=== PATIENT | female | born 1985 | race Two or more races ===

== ENCOUNTER → 2020-04-13 | Outpatient (REF) | payer MEDICAID ==
[2020-04-13 14:25] LABS: HEMOGLOBIN 11.4 g/dl (12.0-15.5); MEAN CORPUSCULAR HEMOGLOBIN 27.3 pg (27.0-33.0); MEAN CORPUSCULAR HGB CONC 32.6 g/dl (32.0-36.5); MEAN CORPUSCULAR VOLUME 83.7 fl (80.0-96.0); PLATELET COUNT, AUTOMATED 268 10^3/uL (150-450); RED BLOOD COUNT 4.18 10^6/uL (4.00-5.40); WHITE BLOOD COUNT 7.3 10^3/uL (4.0-10.0)
[2020-04-13 14:55] LABS: HEMOGLOBIN A1c 5.3 %
[2020-04-13 15:18] LABS: HEPATITIS C VIRUS ABY INDEX 0.1 INDEX (<0.8); HIV 1&2 SCREEN CENTAUR NEGATIVE (NEGATIVE)
== END ==
LOC: M PLALAB 10:36
PROVIDERS: ATTEND Advanced Practice Midwife
DX: Z3A.09 9 weeks gestation of pregnancy (principal)

== ENCOUNTER → 2020-06-23 | Outpatient (CLI) | payer MEDICAID ==
--- NOTE | 2020-06-23 16:59 | REP ---
INDICATION: ANATOMY. COMPARISON: None. TECHNIQUE: Real-time sonographic evaluation of the gravid uterus performed. FINDINGS: Estimated gestational age is19 weeks 6 days, EDC 11/11/2020. Today's measurements indicate appropriate growth. Presentation: Breech Placenta anterior, grade 1, without evidence of placenta previa. heart rate is recorded at 134 beats per minute. Amniotic fluid is subjectively normal. Closed cervical length is measured at 3.9 cm. Biometry chart: BPD: 45 mm, 19 weeks 5 days, 46th percentile. HC: 176 mm, 20 weeks 0 days, 56th percentile AC: 137 mm, 19 weeks 1 days, 35th percentile Femur length: 34 mm, 20 weeks 6 days, 73rd percentile HC to AC ratio: 1.28, normal range 1.06-1.25. Estimated weight: 319g, 47th percentile. anatomy: Cranium: Grossly normal Lateral Ventricles/Choroid Plexus: Grossly normal Posterior Fossa/Cerebellum: Grossly normal Nose/lips/profile: Grossly normal Four chamber heart: Grossly normal Right ventricular outflow tract: Grossly normal Left ventricular outflow tract: Grossly normal Left-sided stomach: Grossly normal Kidneys: Grossly normal Bladder: Grossly normal Cord Insertion: Grossly normal 3 vessel cord: Grossly normal Spine: Not well seen due to position. IMPRESSION: Viable single intrauterine gestation as above. Spine not well seen due to position. <Electronically signed by Washington Alexander > 06/23/20 [id number]
== END ==
LOC: M WHC 13:27
PROVIDERS: ATTEND Advanced Practice Midwife
DX: O32.1XX0 Maternal care for breech presentation, not applicable or unspecified (principal); Z3A.19 19 weeks gestation of pregnancy

== ENCOUNTER → 2020-07-01 | Outpatient (CLI) | payer MEDICAID, OTHER | LOC: M WHC 00:28 | PROVIDERS: ATTEND Obstetrics & Gynecology | DX: Z36.89 Encounter for other specified antenatal screening (principal); Z3A.21 21 weeks gestation of pregnancy; Z53.8 Procedure and treatment not carried out for other reasons ==

== ENCOUNTER → 2020-07-10 | Outpatient (CLI) | payer MEDICAID ==
--- NOTE | 2020-07-10 11:58 | REP ---
INDICATION: F/U ANATOMY COMPARISON: 06/23/2020 TECHNIQUE: Transabdominal obstetrical ultrasound with color Doppler evaluation. FINDINGS: Examination demonstrates a single live intrauterine in breech presentation. motion is identified by technologist. Placenta is noted anterior and grade 1 without evidence for placenta previa or abruption. Amniotic fluid volume is normal. Cervix measures 3.0 cm in length and appears closed.. Gestational age by 1st ultrasound 22 weeks 2 days with EL 11/11/2020. Gestational age by current measurements 22 weeks 4 days with EL 11/09/2020. FHR equals 142 beats per minute. Estimated weight 546 grams (75thpercentile). Anatomical assessment demonstrates normal spine. IMPRESSION: Single live intrauterine in breech presentation demonstrating appropriate estimated weight and growth. Images of the spine are normal. <Electronically signed by Paul Lopez > 07/10/20 [id number]
== END ==
LOC: M WHC 11:10
PROVIDERS: ATTEND Obstetrics & Gynecology
DX: Z34.92 Encounter for supervision of normal pregnancy, unspecified, second trimester (principal); Z3A.22 22 weeks gestation of pregnancy

== ENCOUNTER → 2020-08-20 | Outpatient (REF) | payer MEDICAID, OTHER ==
[2020-08-20 10:46] LABS: HEMATOCRIT 35.1 % (36.0-47.0); HEMOGLOBIN 11.5 g/dl (12.0-15.5); MEAN CORPUSCULAR HEMOGLOBIN 28.3 pg (27.0-33.0); MEAN CORPUSCULAR HGB CONC 32.8 g/dl (32.0-36.5); MEAN CORPUSCULAR VOLUME 86.5 fl (80.0-96.0); PLATELET COUNT, AUTOMATED 249 10^3/uL (150-450); RED BLOOD COUNT 4.06 10^6/uL (4.00-5.40); WHITE BLOOD COUNT 9.2 10^3/uL (4.0-10.0)
[2020-08-20 11:15] LABS: ALT/SGPT 20 U/L (12-78); BILIRUBIN,TOTAL 0.2 MG/DL (0.2-1.0); CREATININE FOR GFR 0.58 MG/DL (0.55-1.30); GLOMERULAR FILTRATION RATE > 60.0 (>60); GLUCOSE CHALLENGE TEST 1 HOUR 128 MG/DL (LESS THAN 140); LDH LACTATE DEHYDROGENASE 154 U/L (84-246); URIC ACID 3.6 MG/DL (2.6-6.0)
[2020-08-20 11:16] LABS: CREATININE,RANDOM URINE 34.2 MG/DL; TOTAL PROTEIN,RANDOM URINE 9.8 MG/DL (0.0-12.0)
== END ==
LOC: M PLALAB 08:54
PROVIDERS: ATTEND Advanced Practice Midwife
DX: Z3A.26 26 weeks gestation of pregnancy (principal)

== ENCOUNTER → 2020-09-17 | Outpatient (CLI) | payer OTHER, MEDICAID ==
--- NOTE | 2020-09-17 16:42 | REP ---
INDICATION: GROWTH HYPERTENSTION. COMPARISON: Comparison sonography 27 August 2020.. TECHNIQUE: Transabdominal obstetric sonography. FINDINGS: Scanning through the gravid uterus demonstrates a viable single intrauterine gestation in cephalic lie. motion is observed and heart rate is recorded at 142 beats per minute. A anterior placenta is seen, grade 2, without evidence of placenta previa. Closed cervical length is measured at 3.2 cm transabdominally. No extrauterine abnormality is observed. Amniotic fluid is subjectively normal. MICHAEL is normal at 11.2 cm.. anatomic survey is not performed with this exam.. Biometry chart: BPD 8.1 cm, 32 weeks 4 days Head circumference 29.1 cm, 32 weeks 1 day Abdominal circumference 27.9 cm, 32 weeks 0 days Femur length 6.5 cm, 33 weeks 3 days Humeral length 5.8 cm, 33 weeks 2 days HC AC ratio normal 1.04 Cephalic index normal 0.79 Estimated weight 1982 g, 4 lb 5 oz, 50th percentile for 32 weeks 1 day SD ratio in the umbilical cord artery by Doppler is normal at 2.22 IMPRESSION: Viable single intrauterine gestation at 32 weeks 5 days by today's composite sonographic criteria. EL by today's sonography November 07, 2020. No complication identified. Expected gestational age estimate based on prior sonography is 32 weeks 1 day. EL by prior sonography November 11, 2020. There is appropriate interval growth. <Electronically signed by Ryne Ferrari > 09/17/20 [id number]
== END ==
LOC: M WHC 10:03
PROVIDERS: ATTEND Advanced Practice Midwife
DX: O10.919 Unspecified pre-existing hypertension complicating pregnancy, unspecified trimester (principal)

== ENCOUNTER → 2020-09-17 | Outpatient (REF) | payer OTHER ==
[2020-09-17 15:35] LABS: HEMATOCRIT 35.1 % (36.0-47.0); HEMOGLOBIN 11.3 g/dl (12.0-15.5); MEAN CORPUSCULAR HEMOGLOBIN 28.3 pg (27.0-33.0); MEAN CORPUSCULAR HGB CONC 32.2 g/dl (32.0-36.5); PLATELET COUNT, AUTOMATED 238 10^3/uL (150-450); RED BLOOD COUNT 3.99 10^6/uL (4.00-5.40); WHITE BLOOD COUNT 9.8 10^3/uL (4.0-10.0)
[2020-09-17 15:51] LABS: ALT/SGPT 55 U/L (12-78); BILIRUBIN,TOTAL 0.2 MG/DL (0.2-1.0); CREATININE FOR GFR 0.59 MG/DL (0.55-1.30); GLOMERULAR FILTRATION RATE > 60.0 (>60); LDH LACTATE DEHYDROGENASE 158 U/L (84-246); URIC ACID 3.8 MG/DL (2.6-6.0)
== END ==
LOC: M PLALAB 12:32
PROVIDERS: ATTEND Advanced Practice Midwife
DX: O10.919 Unspecified pre-existing hypertension complicating pregnancy, unspecified trimester (principal)

== ENCOUNTER → 2020-09-18 | Outpatient (REF) | payer OTHER ==
[2020-09-18 15:32] LABS: APPEARANCE, URINE CLEAR (CLEAR); BACTERIA, URINE AUTO NEGATIVE (NEGATIVE); BILIRUBIN, URINE AUTO NEGATIVE (NEGATIVE); BLOOD, URINE BLOOD NEGATIVE (NEGATIVE); COLOR, URINE STRAW (YELLOW); GLUCOSE, URINE (UA) AUTO NEGATIVE (NEGATIVE); KETONE, URINE AUTO NEGATIVE (NEGATIVE); LEUKOCYTE ESTERASE, URINE AUTO NEGATIVE (NEGATIVE); NITRITE, URINE AUTO NEGATIVE (NEGATIVE); PROTEIN, URINE AUTO NEGATIVE (NEGATIVE); RBC, URINE AUTO 0 /HPF (0-3); SPECIFIC GRAVITY URINE AUTO 1.005 (1.002-1.035); SQUAMOUS EPITHELIAL CELL UR AU 1 /HPF (0-6); UROBILINOGEN, URINE AUTO 0.2 mg/dL (0.0-2.0); WBC, URINE AUTO 0 /HPF (0-3)
[2020-09-18 15:51] LABS: CREATININE,RANDOM URINE 53.6 MG/DL; TOTAL PROTEIN,RANDOM URINE < 5.0 MG/DL (0.0-12.0)
== END ==
LOC: M PLALAB 13:50
PROVIDERS: ATTEND Advanced Practice Midwife
DX: R39.15 Urgency of urination (principal); O10.919 Unspecified pre-existing hypertension complicating pregnancy, unspecified trimester

== ENCOUNTER → 2020-10-09 | Outpatient (CLI) | payer OTHER ==
[~2020-10-09] MED LIST: ACET-907 PO; ALKATAB22 PO; BUSP5TA PO; CALC500C16 PO; CBD OIL; CLAR5TAB11 PO; ECOT81TA5 PO; LABE200T32 PO; LABE300T2 PO; NOXI1TAB PO; PRENTAB9 PO; VITA100T59 PO; [UNRECOGNIZED DRUG - CODE] PO
--- NOTE | 2020-10-09 09:05 | REP ---
INDICATION: HYPERTENSION,GROWTH COMPARISON: 09/17/2020 TECHNIQUE: Transabdominal obstetrical ultrasound with color Doppler evaluation. FINDINGS: Examination demonstrates a single live intrauterine in cephalic presentation. motion is identified by technologist. Placenta is noted anterior and grade 2 without evidence for placenta previa or abruption. Amniotic fluid volume is decreased. Selected gestational age: 35 weeks 2 days with EL 11/11/2020. Gestational age by current measurements 35 weeks 2 days with EL 11/11/2020. FHR equals 134 beats per minute. Estimated weight 2635 grams (47thpercentile). MICHAEL: 3.5 cm Umbilical artery SD ratio: 2.18 (1.67-3.57) IMPRESSION: 1. Single live intrauterine in cephalic presentation demonstrating appropriate interval growth. 2. Oligohydramnios. <Electronically signed by Paul Lopez > 10/09/20 0901
== END ==
LOC: M WHC 07:05
PROVIDERS: ATTEND Advanced Practice Midwife
DX: O16.2 Unspecified maternal hypertension, second trimester (principal)

== ENCOUNTER 2020-10-10 18:37 | Outpatient (CLI) | payer OTHER ==
[~2020-10-10] VITALS: Ht 174 cm; Wt 109.0 kg
[~2020-10-10 18:37] MED LIST changes: -BUSP5TA PO; -LABE200T32 PO; -[UNRECOGNIZED DRUG - CODE] PO
[2020-10-10] MEDS ORDERED: BETAMETHASONE SOLUSPAN 6MG/ML 5ML VIAL (J0702 PER 3MG) IM ONE (19:00)
== END 2020-10-10 18:46 | disposition home or self-care (01) ==
LOC: M LDO 18:37
PROVIDERS: ATTEND Obstetrics & Gynecology
DX: O41.03X0 Oligohydramnios, third trimester, not applicable or unspecified (principal); Z3A.35 35 weeks gestation of pregnancy; O10.013 Pre-existing essential hypertension complicating pregnancy, third trimester; O09.513 Supervision of elderly primigravida, third trimester; Z88.1 Allergy status to other antibiotic agents; Z88.2 Allergy status to sulfonamides; Z88.8 Allergy status to other drugs, medicaments and biological substances; Z91.018 Allergy to other foods
CPT/HCPCS: 96372; J0702

== ENCOUNTER 2020-10-12 10:09 | Outpatient (CLI) | payer OTHER ==
[2020-10-12] VITALS (10 sets, daily range): BP systolic 117–167; BP diastolic 75–94
[~2020-10-12] VITALS: Ht 174 cm; Wt 110.0 kg
[2020-10-12] MEDS ORDERED: [UNRECOGNIZED DRUG - CODE] PO (10:27)
[2020-10-12] MEDS ORDERED: LABETALOL 100MG TAB PO ONE (11:15)
[2020-10-12] MEDS ORDERED: busPIRone 5 MG TAB PO ONE (14:00)
--- NOTE | 2020-10-12 14:02 | REP ---
INDICATION: chronic hypertension with oligohydramnios. COMPARISON: None. TECHNIQUE: Transabdominal scanning FINDINGS: Multiple ultrasonographic images of the gravid uterus shows a single living intrauterine gestation in the cephalic presentation. The placenta is anterior and not low-lying. Secondary to the low position of the head an accurate cervical length measurement could not be obtained. Doppler interrogation of the heart shows a heart rate of 139 beats per minute. The subjective amniotic fluid volume is low. The calculated amniotic fluid index is 7.4 within expected range 7.8 to 24.9. biophysical profile score is 2 for breathing, 2 for movement, 2 for tone, and 2 for amniotic fluid volume giving a sum total of 8/8. Doppler interrogation of the umbilical artery shows an AB ratio of 2.48. This is within the normal range. IMPRESSION: Limited OB ultrasound as described above. There is evidence of oligohydramnios. <Electronically signed by Enrique Chaves > 10/12/20 [id number]
[2020-10-12] MEDS ORDERED: LABE200T32 PO (14:39)
[2020-10-12] MEDS ORDERED: BUSP5TA PO (14:40)
--- NOTE | 2020-10-12 14:44 | IPNPDOC ---
Text Note Date of Service The patient was seen on 10/12/20. NOTE Subjective: Objective: Assessment: Plan: VS,Fishbone, I+O VS, Fishbone, I+O Vital Signs Date Time Temp Pulse Resp B/P (MAP) Pulse Ox O2 Delivery O2 Flow Rate FiO2 10/12/20 14:14 52 16 154/84 (107) 10/12/20 10:33 98.0 [facility] NAME: TOMMIE SALGADO DATE OF : 1985 AGE: 35 SEX: F REPORT #: [id number] ROOM: [facility] TECHNOLOGIST: ROSCOE DOCTOR: TREVOR KNOX CNM Ordered for Date&Time: 10/12/20 1237 cc: [~ rep ct ivnm] Service Date&Time: 10/12/20 1346 This report is in Signed status. If this report is in a DRAFT status it has not yet been reviewed by the radiologist for accuracy. Thank you for having your radiology procedures performed at [facility] RADIOLOGY REPORT Date&Time printed: [~ rep prt dt last] [~ rep prt tm last] Page 2 of 2 [place] [address] RADIOLOGY REPORT This report is in Signed status. If this report is in a DRAFT status it has not yet been reviewed by the radiologist for accuracy. Thank you for having your radiology procedures performed at [facility] RADIOLOGY REPORT Date&Time printed: [~ rep prt dt last] [~ rep prt tm last] Page 1 of 1 NAME: TOMMIE SALGADO DATE OF : 1985 AGE: 35 SEX: F REPORT #: [id number] ROOM: [facility] TECHNOLOGIST: OWEN DOCTOR: TREVOR KNOX CNM Ordered for Date&Time: 10/12/20 1237 cc: [~ rep ct ivnm] Service Date&Time: 10/12/20 1346 EXAMINATION REQUESTED: BPP W/O NON STRESS TEST REASON FOR PATIENT VISIT: BLOOD PRESSURE REASON FOR EXAM/COMMENT: chronic hypertension with oligohydramnios INDICATION: chronic hypertension with oligohydramnios. COMPARISON: None. TECHNIQUE: Transabdominal scanning FINDINGS: Multiple ultrasonographic images of the gravid uterus shows a single living intrauterine gestation in the cephalic presentation. The placenta is anterior and not low-lying. Secondary to the low position of the head an accurate cervical length measurement could not be obtained. Doppler interrogation of the heart shows a heart rate of 139 beats per minute. The subjective amniotic fluid volume is low. The calculated amniotic fluid index is 7.4 within expected range 7.8 to 24.9. biophysical profile score is 2 for breathing, 2 for movement, 2 for tone, and 2 for amniotic fluid volume giving a sum total of 8/8. Doppler interrogation of the umbilical artery shows an AB ratio of 2.48. This is within the normal range. IMPRESSION: Limited OB ultrasound as described above. There is evidence of oligohydramnios. <Electronically signed by Enrique Chaves > 10/12/20 1359 DD: Enrique Chaves MD DO 10/12/20 1356 DT: JENNIFER 10/12/20 1359 DS: LYDIA 10/12/20 1356 10/12/20 1356 [~ rep ct labl] TREVOR KNOX CNM Oct 12, 2020 14:43
== END 2020-10-12 15:00 ==
LOC: M LDO 10:09
PROVIDERS: ATTEND Advanced Practice Midwife
DX: O10.013 Pre-existing essential hypertension complicating pregnancy, third trimester (principal); Z3A.35 35 weeks gestation of pregnancy; O41.03X0 Oligohydramnios, third trimester, not applicable or unspecified; O09.513 Supervision of elderly primigravida, third trimester; Z88.1 Allergy status to other antibiotic agents; Z88.2 Allergy status to sulfonamides; Z88.8 Allergy status to other drugs, medicaments and biological substances

== ENCOUNTER → 2020-10-13 | Outpatient (REF) | payer OTHER ==
[~2020-10-13] MED LIST changes: +BUSP5TA PO; +LABE200T32 PO; +[UNRECOGNIZED DRUG - CODE] PO
== END ==
LOC: M PLALAB 10:43
PROVIDERS: ATTEND Obstetrics & Gynecology
DX: Z36.89 Encounter for other specified antenatal screening (principal); Z3A.35 35 weeks gestation of pregnancy

== ENCOUNTER → 2020-10-13 | Outpatient (REF) | payer OTHER | LOC: M SFHCWAGY 16:55 | PROVIDERS: ATTEND Obstetrics & Gynecology | DX: Z36.89 Encounter for other specified antenatal screening (principal); Z3A.35 35 weeks gestation of pregnancy ==

== ENCOUNTER 2020-10-21 18:14 | Inpatient (IN) | payer OTHER ==
[~2020-10-21] VITALS: Ht 174 cm; Wt 111.3 kg
[2020-10-21 18:37] VITALS: BP 142/82
[2020-10-21 19:43] VITALS: BP 128/82
[2020-10-21] MEDS ORDERED: LACTATED RINGER'S 1000 ML IV STA (19:48)
[2020-10-21] MEDS ORDERED: OXYTOCIN INJ 10 UNITS/ML VIAL (J2590) IM PRN (19:50)
[2020-10-21] MEDS ORDERED: LIDOCAINE 1% MDV 20ML VIAL INFIL PRN (19:50)
[2020-10-21] MEDS ORDERED: OXYTOCIN DRIP 30 UNITS in IV 1 EA IV PRN (19:50)
[2020-10-21] MEDS ORDERED: METHYLERGONOVINE MALEATE 0.2 MG/ML VIAL (J2210) IM PRN (19:50)
[2020-10-21] MEDS: miSOPROStol 50MCG 1/2 TABLET PO SCH (20:06)
[2020-10-21] MEDS: LR 1,000 ML IV SCH (20:06)
[2020-10-21 20:12] LABS: HEMATOCRIT 32.9 % (36.0-47.0); HEMOGLOBIN 10.7 g/dl (12.0-15.5); MEAN CORPUSCULAR HEMOGLOBIN 28.1 pg (27.0-33.0); MEAN CORPUSCULAR HGB CONC 32.5 g/dl (32.0-36.5); MEAN CORPUSCULAR VOLUME 86.4 fl (80.0-96.0); PLATELET COUNT, AUTOMATED 220 10^3/uL (150-450); RED BLOOD COUNT 3.81 10^6/uL (4.00-5.40); WHITE BLOOD COUNT 10.2 10^3/uL (4.0-10.0)
[2020-10-21] MEDS ORDERED: OMEP40CA4 PO (20:26)
[2020-10-21 20:32] LABS: ALT/SGPT 37 U/L (12-78); BILIRUBIN,TOTAL 0.2 MG/DL (0.2-1.0); CREATININE FOR GFR 0.63 MG/DL (0.55-1.30); GLOMERULAR FILTRATION RATE > 60.0 (>60); LDH LACTATE DEHYDROGENASE 190 U/L (84-246); URIC ACID 4.2 MG/DL (2.6-6.0)
[2020-10-21 20:53] VITALS: BP 141/82
[2020-10-21 21:23] VITALS: BP 138/85
[2020-10-21 22:24] VITALS: BP 140/84
[2020-10-21] MEDS: LABETALOL 200 MG TAB PO SCH (22:43)
[2020-10-21 23:46] VITALS: BP 129/69
[2020-10-22] VITALS (17 sets, daily range): BP systolic 105–179; BP diastolic 55–92
[2020-10-22] MEDS: miSOPROStol 50MCG 1/2 TABLET PO SCH ×6 (00:07→22:33)
--- NOTE | 2020-10-22 00:36 | HPE ---
HISTORY AND PHYSICAL DATE OF ADMISSION: 10/21/2020 HISTORY OF PRESENT ILLNESS: Yahir is a 35-year-old 1, para 0, at 37 weeks gestation, EDC of 11/11/2020 based on last menstrual period and confirmed by first trimester ultrasound. She presents to labor and delivery today for induction of labor following a routine office visit where she was noted to have no measurable pockets of fluid for an MICHAEL. She does deny regular painful contractions, vaginal bleeding and leakage of fluids. She does report the fetus has been active. Her care was initiated at [facility] in the first trimester. Her course was complicated by chronic hypertension and oligohydramnios that she has been followed for. Her mother has a history of breast cancer at age 27. OBSTETRIC LABS: O+, antibody screen negative, Syphilis negative, gonorrhea and Chlamydia negative. Hepatitis B negative. Hepatitis C negative. HIV negative. Rubella immune. Gestational diabetic screening 128 and her GBS is negative. PAST MEDICAL HISTORY: Childhood Varicella. PAST SURGICAL HISTORY: Colposcopy and wisdom tooth extraction. ALLERGIES: Bactrim, Azithromycin, sulfa, and strawberries. CURRENT MEDICATIONS: Labetalol 400 mg b.i.d., vitamin. FAMILY HISTORY: Breast cancer, hypertension. SOCIAL HISTORY: The patient is single, however, the father of the baby is at bedside and he is supportive. She is a nonsmoker. Denies alcohol and drug use. 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 She denies a history of abuse; physical, sexual and emotional. OBJECTIVE: Temperature 98.3, pulse 68, respiratory rate 18, blood pressure 128/82. heart rate is 130 with moderate variability. Positive accelerations. No decelerations. There is an occasional contraction. Her abdomen is gravid. Cephalic presentation. Estimated weight 2800 grams. IMAGING: Most recent ultrasound on 10/12/2020 showed a fluid of 7.4 cm and in the office today no measurable fluid noted. STERILE VAGINAL EXAMINATION: Fingertip dilated, 50% effaced, -3 station posterior, soft. No show with the exam. ASSESSMENT: Intrauterine at 37 weeks gestation. heart rate is category 1. Oligohydramnios anhydramnios. PLAN: Per consult with Dr. Kimmie Mcdonald, admit patient to labor and delivery. Routine laboratories with the addition of a preeclamptic profile. Out of bed ad david, clear liquid diet. Plan to start Misoprostol 50 mcg p.o. for cervical ripening. I did review the risks, benefits and alternatives with the patient. She has been verbally consented for emergency surgery and blood products. She and her fianc's questions have been answered. I do anticipate cervical ripening. The patient is desiring an epidural when she is in active labor. I did review with the patient and her that she is at risk for section due to absent aamniotic fluid and hypertension. JOHN
[2020-10-22] MEDS: LR 1,000 ML IV SCH ×3 (04:18→17:11)
[2020-10-22] MEDS: LABETALOL 200 MG TAB PO SCH ×2 (08:33→21:45)
--- NOTE | 2020-10-22 09:42 | REP ---
INDICATION: dx oligo, want MICHAEL with BPP. COMPARISON: None. TECHNIQUE: Transabdominal scanning FINDINGS: Ultrasonographic evaluation of the gravid uterus shows a single living intrauterine gestation in the cephalic presentation. Doppler interrogation of the heart is a heart rate of 128 beats per minute. The subjective amniotic fluid volume is decreased. The calculated amniotic fluid index is 5.8 within expected range 7.5 to 24.4. The placenta is anterior not low lying. biophysical profile score is 2 for breathing, 2 for movement, 2 for tone, and 2 for amniotic fluid volume giving a sum total of 8/8. Doppler interrogation of the umbilical artery shows an AB ratio of 2.19. This is within the normal range. IMPRESSION: There is evidence of oligohydramnios. Other findings as described above. Multiple attempts have been made to sign this report, however, due to a RIS anomaly multiple attempts have failed. <Electronically signed by Enrique Chaves > 10/22/20 0963
[2020-10-22] MEDS ORDERED: PROMETHAZINE INJ 25 MG/ML VIAL (J2550) IV ONE (22:15)
[2020-10-22] MEDS ORDERED: BUTORPHANOL 2 MG/ML INJ (J0595) IV ONE (22:15)
[2020-10-23] VITALS (55 sets, daily range): BP systolic 116–171; BP diastolic 54–109
--- NOTE | 2020-10-23 08:18 | IPNPDOC ---
Text Note Date of Service The patient was seen on 10/23/20. NOTE Progress Reports feeling uncomfortable with UC, moaning with UC Irregular mild UC Cat I tracing SVE /-2, old bloody show Will place cooks catheter and start pitocin after breakfast. Plans epidural VSS, BP mild elevations VS,Fishbone, I+O VS, Fishbone, I+O Vital Signs Date Time Temp Pulse Resp B/P (MAP) Pulse Ox O2 Delivery O2 Flow Rate FiO2 10/23/20 07:10 57 16 160/83 (108) Room Air 10/23/20 06:06 98.1 I&O- Last 24 Hours up to 6 AM 10/23/20 05:59 Intake Total 2000 ml Balance 2000 ml France Mackay Oct 23, 2020 08:18
[2020-10-23] MEDS: LABETALOL 200 MG TAB PO SCH ×2 (09:02→20:41)
[2020-10-23 09:30] LABS: HEMATOCRIT 31.6 % (36.0-47.0); HEMOGLOBIN 10.3 g/dl (12.0-15.5); MEAN CORPUSCULAR HEMOGLOBIN 28.1 pg (27.0-33.0); MEAN CORPUSCULAR HGB CONC 32.6 g/dl (32.0-36.5); MEAN CORPUSCULAR VOLUME 86.3 fl (80.0-96.0); PLATELET COUNT, AUTOMATED 205 10^3/uL (150-450); RED BLOOD COUNT 3.66 10^6/uL (4.00-5.40); WHITE BLOOD COUNT 9.1 10^3/uL (4.0-10.0)
[2020-10-23 10:01] LABS: ALBUMIN 2.6 GM/DL (3.2-5.2); ALT/SGPT 38 U/L (12-78); BILIRUBIN,TOTAL 0.2 MG/DL (0.2-1.0); BLOOD UREA NITROGEN 7 MG/DL (7-18); CALCIUM LEVEL 8.8 MG/DL (8.5-10.1); CARBON DIOXIDE LEVEL 22 MEQ/L (21-32); CHLORIDE LEVEL 113 MEQ/L (98-107); CREATININE FOR GFR 0.61 MG/DL (0.55-1.30); GLOMERULAR FILTRATION RATE > 60.0 (>60); GLUCOSE, FASTING 78 MG/DL (70-100); POTASSIUM SERUM 4.2 MEQ/L (3.5-5.1); SODIUM LEVEL 141 MEQ/L (136-145)
[2020-10-23] MEDS ORDERED: BUTORPHANOL 2 MG/ML INJ (J0595) IV ONE (10:40)
[2020-10-23] MEDS ORDERED: OXYTOCIN DRIP 30 UNITS in IV 1 EA IV SCH (10:40)
[2020-10-23] MEDS ORDERED: PROMETHAZINE INJ 25 MG/ML VIAL (J2550) IV ONE (10:40)
--- NOTE | 2020-10-23 10:41 | IPNPDOC ---
Text Note Date of Service The patient was seen on 10/23/20. NOTE Progress Has eaten breakfast and showered Moaning with UC Q 5-7m minutes, mild/moderate Cat I tracing SVE 2/80/-2, Cooks catheter placed, inflated with 60/40cc NS Start pitocin Dr Domínguez aware of patient status VS,Fishbone, I+O VS, Fishbone, I+O Laboratory Tests 10/23/20 09:15 Vital Signs Date Time Temp Pulse Resp B/P (MAP) Pulse Ox O2 Delivery O2 Flow Rate FiO2 10/23/20 09:58 98.6 51 20 152/78 (102) Room Air I&O- Last 24 Hours up to 6 AM 10/23/20 05:59 Intake Total 2000 ml Balance 2000 ml France Mackay CNM Oct 23, 2020 10:41
[2020-10-23] MEDS: LR 1,000 ML IV SCH ×2 (11:37→18:52)
[2020-10-23] MEDS ORDERED: hydrALAZINE 20MG/ML 1ML VIAL (J0360 PER 20MG) IV ONE (13:00)
[2020-10-23] MEDS ORDERED: FENTANYL 2MCG/ML ROPIVACAINE 0.2% IN 0.9% NACL 100ML IVBAG As Ordered ONE (13:18)
[2020-10-23] MEDS ORDERED: NALOXONE INJ 0.4MG/1ML VIAL (J2310 PER 1MG) IV PRN (13:35)
[2020-10-23] MEDS ORDERED: FENTANYL/ROPIVACAINE/NACL BAG 100 ML EPIDURAL SCH (13:35)
[2020-10-23] MEDS ORDERED: ePHEDrine SULFATE 25 MG/5 ML(5MG/ML) SYRINGE IV PRN (13:35)
[2020-10-23] MEDS ORDERED: diphenhydrAMINE 50MG/ML VIAL (J1200) IV PRN (13:35)
[2020-10-23] MEDS ORDERED: EPIDURAL COMMENT XX SCH (13:35)
[2020-10-23] MEDS ORDERED: EPIDURAL/PCA KEYS XX PRN (13:35)
[2020-10-23] MEDS ORDERED: ONDANSETRON 4MG/2ML VIAL IV PRN (13:35)
[2020-10-23] MEDS ORDERED: LACTATED RINGER'S 1000 ML IV PRN (13:35)
[2020-10-23] MEDS ORDERED: REFRIGERATOR IV KEYS XX PRN (13:35)
--- NOTE | 2020-10-23 14:22 | IPNPDOC ---
Text Note Date of Service The patient was seen on 10/23/20. NOTE Progress Comfortable with epidural UC 2-5 minutes x 45-60 sec FH 145, minimal/moderate variability SROM 1223, clear SVE /-1 Continue pitocin. Observe for progress VS,Fishbone, I+O VS, Fishbone, I+O Laboratory Tests 10/23/20 09:15 Vital Signs Date Time Temp Pulse Resp B/P (MAP) Pulse Ox O2 Delivery O2 Flow Rate FiO2 10/23/20 12:18 164/75 10/23/20 11:26 16 10/23/20 09:58 98.6 51 Room Air I&O- Last 24 Hours up to 6 AM 10/23/20 05:59 Intake Total 2000 ml Balance 2000 ml France Mackay CNM Oct 23, 2020 14:22
[2020-10-23] MEDS ORDERED: ACETAMINOPHEN 500 MG TAB PO PRN (17:35)
--- NOTE | 2020-10-23 19:02 | IPNPDOC ---
Text Note Date of Service The patient was seen on 10/23/20. NOTE Progress Comfortable with epidural Vomiting with UC FH 135, occasional variables Pitocin @ 6mu SVE 8/100/0 Continue to observe for SVB VS,Fishbone, I+O VS, Fishbone, I+O Laboratory Tests 10/23/20 09:15 Vital Signs Date Time Temp Pulse Resp B/P (MAP) Pulse Ox O2 Delivery O2 Flow Rate FiO2 10/23/20 17:23 98.4 61 16 133/72 (92) 10/23/20 09:58 Room Air I&O- Last 24 Hours up to 6 AM 10/23/20 06:00 Intake Total 2000 ml Balance 2000 ml France Mackay CNM Oct 23, 2020 19:02
[2020-10-23] MEDS ORDERED: ACETAMINOPHEN TAB 650MG DOSE (2X325MG) PO PRN (20:25)
[2020-10-23] MEDS ORDERED: busPIRone 5 MG TAB PO PRN (20:25)
[2020-10-23] MEDS ORDERED: RHOGAM 300 MCG (1500 IU) INJ (J2790) IM SCH (20:25)
[2020-10-23] MEDS ORDERED: DOCUSATE SODIUM 100MG CAPSULE PO PRN (20:25)
[2020-10-23] MEDS ORDERED: DIBUCAINE 1% OINTMENT 30GM TOP PRN (20:25)
[2020-10-23] MEDS ORDERED: IBUPROFEN 600MG TAB PO PRN (20:25)
[2020-10-23] MEDS ORDERED: MOM 30ML SUSPENSION UDC PO PRN (20:25)
[2020-10-23] MEDS ORDERED: MEASLES,MUMPS,RUBELLA VACCINE INJ (MMR-II) (90707) SC SCH (20:25)
[2020-10-23] MEDS ORDERED: METHYLERGONOVINE MALEATE 0.2 MG TAB PO PRN (20:25)
--- NOTE | 2020-10-23 20:35 | DNPDOC ---
[facility] Delivery Note Delivery Note DATE OF DELIVERY: 10/23/2020 PREDELIVERY DIAGNOSIS: 37-2/7 weeks' gestation, CHTN and labor. POST DELIVERY DIAGNOSIS: Delivered. PROCEDURE: Spontaneous vaginal delivery. PROVIDER: France Mackay CNM ANESTHESIA: Epidural. ESTIMATED BLOOD LOSS: 100 mL. FINDINGS: 5 pound 2 ounce, 2330gm male , Score 8/9, tight nuchal cord times 1. DELIVERY SUMMARY: Patient is a 35-year-old 1 now para 1-0-0-1 who was admitted to labor and delivery for induction of labor due to chronic hypertension. She received misoprostol, Cooks catheter with pitocin and labor did progress. SROm clear fluid 1223. She utilized an epidural for labor coping. FD 191. Viable male somersaulted though a tight nuchal cord without difficulty at 1937. Spontaneous respirations. Transitioned on maternal abdomen. Cord doubly clamped and cut by FOB under my direction once pulsation ceased. Apgars 8/9. Placenta linder, intact with 3v cord @ 1945. Fundus firmed with massage and IV pitocin bolus. EBL 100ml. Cervix vagina and perineum intact. Sponge sharp and instrument count correct. Parents are naming their son Lionel. France Mackay CNM Oct 23, 2020 20:35
[2020-10-23] MEDS ORDERED: LABETALOL 200 MG TAB PO SCH (21:00)
[2020-10-24 02:00] VITALS: BP 139/61
[2020-10-24 06:00] VITALS: BP 118/64
--- NOTE | 2020-10-24 07:05 | IPNPDOC ---
Text Note Date of Service The patient was seen on 10/24/20. NOTE PP #1 Feels well. Very happy. . Voiding VSS, BP well controlled Breasts soft, nipples intact Fundus firm, NT, down 1 FB Lochia rubra light without odor Perineum intact PP #1, CHTN Routine care. Anticipate D/C in am VS,Fishbone, I+O VS, Fishbone, I+O Laboratory Tests 10/23/20 09:15 Vital Signs Date Time Temp Pulse Resp B/P (MAP) Pulse Ox O2 Delivery O2 Flow Rate FiO2 10/24/20 06:00 98.2 64 16 118/64 (82) 100 Room Air I&O- Last 24 Hours up to 6 AM 10/24/20 06:00 Intake Total 6767.4 ml Output Total 1350 ml Balance 5417.4 ml France Mackay CNM Oct 24, 2020 07:05
[2020-10-24] MEDS ORDERED: PRENATAL VITAMINS CHEWABLE TABLET PO SCH (09:00)
[2020-10-24] MEDS ORDERED: diphenhydrAMINE 25MG CAP PO PRN (09:10)
[2020-10-24] MEDS: PRENATAL VITAMINS CHEWABLE TABLET PO SCH (09:17)
[2020-10-24] MEDS: OMEPRAZOLE 20 MG CAP PO SCH (09:19)
[2020-10-24] MEDS: LABETALOL 200 MG TAB PO SCH ×2 (09:20→20:12)
[2020-10-24 10:15] VITALS: BP 126/62
[2020-10-24] MEDS: CETIRIZINE (ZyrTEC) 10 MG TAB PO SCH (10:58)
[2020-10-24 14:02] VITALS: BP 128/70
[2020-10-24 18:00] VITALS: BP 129/69
[2020-10-24] MEDS: IBUPROFEN 800 MG TAB PO PRN (20:17)
[2020-10-24 22:00] VITALS: BP 139/70
[2020-10-24] MEDS: busPIRone 5 MG TAB PO PRN (23:35)
[2020-10-25] VITALS (20 sets, daily range): BP systolic 116–202; BP diastolic 62–110
[2020-10-25] MEDS ORDERED: ACET-683 PO (06:18)
[2020-10-25] MEDS ORDERED: IBUP80TA PO (06:18)
[2020-10-25] MEDS ORDERED: NIFEdipine 10 MG CAP PO SCH (07:15)
[2020-10-25] MEDS: CETIRIZINE (ZyrTEC) 10 MG TAB PO SCH (08:07)
[2020-10-25] MEDS: OMEPRAZOLE 20 MG CAP PO SCH (08:07)
[2020-10-25] MEDS: PRENATAL VITAMINS CHEWABLE TABLET PO SCH (08:07)
[2020-10-25] MEDS: LABETALOL 200 MG TAB PO SCH ×2 (08:07→21:11)
[2020-10-25] MEDS ORDERED: NIFEdipine 10 MG CAP PO ONE ×2 (09:45→14:50)
[2020-10-25] MEDS: busPIRone 5 MG TAB PO PRN (16:03)
--- NOTE | 2020-10-25 18:29 | IPNPDOC ---
Progress Note Date of Service: Oct 25, 2020 Progress Note SUBJECT:mild headache. otherwise feels normal OBJECTIVE: VITAL SIGNS: Within normal limits, afebrile. Alert and oriented times three. Breath sounds clear to auscultation. Heart rate: Regular rate and rhythm, no murmurs, rubs or gallops. Abdomen: Fundus firm at U-2. Soft, NTTP. Minimal lochia. ASSESSMENT: Pt is a [id number] with chronic hypertension, superimposed post- preeclampsia PLAN: 1. Add Nifedipine 10 mg to BP regimen 2. Continue Labetalol 400 mg BID 3. Keep in hospital to manage BP's VS, I&O, 24H, Fishbone Vital Signs/I&O Vital Signs Date Time Temp Pulse Resp B/P (MAP) Pulse Ox O2 Delivery O2 Flow Rate FiO2 10/25/20 17:47 97.8 70 16 146/86 (106) 100 Room Air I&O- Last 24 Hours up to 6 AM 10/25/20 06:00 Intake Total 500 ml Balance 500 ml ERENDIRA PARRA MD Oct 25, 2020 18:29
[2020-10-25] MEDS: NIFEdipine 30 MG XL TAB PO SCH (18:57)
[2020-10-25] MEDS: IBUPROFEN 800 MG TAB PO PRN (23:59)
[2020-10-26 02:00] VITALS: BP 144/78
[2020-10-26 06:00] VITALS: BP 154/90
[2020-10-26] MEDS ORDERED: NIFE1TAB52 PO (07:14)
[2020-10-26 09:16] VITALS: BP 139/67
[2020-10-26] MEDS: LABETALOL 200 MG TAB PO SCH (09:16)
[2020-10-26] MEDS: CETIRIZINE (ZyrTEC) 10 MG TAB PO SCH (09:16)
[2020-10-26] MEDS: NIFEdipine 30 MG XL TAB PO SCH (09:16)
[2020-10-26] MEDS: OMEPRAZOLE 20 MG CAP PO SCH (09:17)
[2020-10-26] MEDS: PRENATAL VITAMINS CHEWABLE TABLET PO SCH (09:17)
[2020-10-26 10:00] VITALS: BP 139/67
== END 2020-10-26 13:45 | disposition home or self-care (01) | DRG 560 ==
LOC: M LDI 18:14 → M OBS 10-23 21:54
PROVIDERS: ADMIT Advanced Practice Midwife; ATTEND Advanced Practice Midwife
PROC: 3E0P7GC Introduction of Other Therapeutic Substance into Female Reproductive, Via Natural or Artificial Opening (ICD-10-PCS; 2020-10-21)
PROC: 10E0XZZ Delivery of Products of Conception, External Approach (ICD-10-PCS; principal; 2020-10-23)
DX: O41.03X0 Oligohydramnios, third trimester, not applicable or unspecified (principal); O10.02 Pre-existing essential hypertension complicating childbirth; Z3A.37 37 weeks gestation of pregnancy; O69.1XX0 Labor and delivery complicated by cord around neck, with compression, not applicable or unspecified; Z37.0 Single live birth; O11.4 Pre-existing hypertension with pre-eclampsia, complicating childbirth

== ENCOUNTER → 2021-02-23 | Outpatient (CLI) | payer OTHER ==
[~2021-02-23] MED LIST changes: +ACET-683 PO; +IBUP80TA PO; +NIFE1TAB52 PO; +OMEP40CA4 PO
[2021-02-23 15:43] LABS: BASO % 0.2 % (0.0-1.0); EOS # 0.1 10^3/uL (0.0-0.5); EOS % 1.6 % (0.0-3.0); HEMATOCRIT 38.2 % (36.0-47.0); LYMPH # 2.2 10^3/uL (1.5-5.0); LYMPH % 39.3 % (24.0-44.0); MEAN CORPUSCULAR HEMOGLOBIN 26.8 pg (27.0-33.0); MEAN CORPUSCULAR HGB CONC 31.4 g/dl (32.0-36.5); MEAN CORPUSCULAR VOLUME 85.5 fl (80.0-96.0); MONO # 0.5 10^3/uL (0.0-0.8); MONO % 8.7 % (2.0-8.0); NEUTROPHILS # 2.8 10^3/uL (1.5-8.5); PLATELET COUNT, AUTOMATED 284 10^3/uL (150-450); RED BLOOD COUNT 4.47 10^6/uL (4.00-5.40); WHITE BLOOD COUNT 5.6 10^3/uL (4.0-10.0)
[2021-02-23 16:58] LABS: ALBUMIN 3.9 GM/DL (3.2-5.2); ALT/SGPT 24 U/L (12-78); BILIRUBIN,TOTAL 0.4 MG/DL (0.2-1.0); BLOOD UREA NITROGEN 11 MG/DL (7-18); CALCIUM LEVEL 9.9 MG/DL (8.5-10.1); CARBON DIOXIDE LEVEL 31 MEQ/L (21-32); CHLORIDE LEVEL 107 MEQ/L (98-107); CHOLESTEROL LEVEL 167 MG/DL (<200); CHOLESTEROL RISK RATIO 2.609 (<5); CREATININE FOR GFR 0.78 MG/DL (0.55-1.30); FREE T4 0.95 NG/DL (0.76-1.46); GLOMERULAR FILTRATION RATE > 60.0 (>60); GLUCOSE, FASTING 85 MG/DL (70-100); HDL CHOLESTEROL 64 MG/DL (>40); LDL CHOLESTEROL 95 MG/DL (<100); NON-HDL-C 103 MG/DL; POTASSIUM SERUM 4.9 MEQ/L (3.5-5.1); SODIUM LEVEL 141 MEQ/L (136-145); THYROID STIMULATING HORMONE 0.675 uIU/ML (0.358-3.740); TOTAL PROTEIN 7.4 GM/DL (6.4-8.2); TRIGLYCERIDES LEVEL 42 MG/DL (<150)
== END ==
LOC: M PLALAB 11:31
PROVIDERS: ATTEND Nurse Practitioner Family
DX: O16.9 Unspecified maternal hypertension, unspecified trimester (principal); Z3A.00 Weeks of gestation of pregnancy not specified; Z13.220 Encounter for screening for lipoid disorders